=== PATIENT | female | born 1980 | race Caucasian/White ===

== ENCOUNTER 2018-11-27 15:15 | Emergency (ER) | payer MEDICAID ==
[~2018-11-27] VITALS: Ht 160 cm; Wt 97.5 kg
--- NOTE | 2018-11-27 15:24 | NUR ---
EKG DONE . REPORTED DR BRAVO. PT AMB TO [facility]. WAITING FOR BED AWAILABLE.
--- NOTE | 2018-11-27 17:14 | NUR ---
AALIYAHO X4 38 YR F WITH C/O LEFT CHEST PAIN RADIATING TO L SHOULDER & L UPPER BACK X TODAY MED HX: DENIES MED: NONE
[2018-11-27] MEDS ORDERED: KETOROLAC 30 MG/ML VIAL IVP ONE (17:25)
[2018-11-27] MEDS ORDERED: ONDANSETRON 4 MG/2 ML VIAL IVP ONE (17:25)
[2018-11-27] MEDS ORDERED: MORPHINE SULFATE 2 MG/ML SYR IVP ONE (17:25)
[2018-11-27 18:53] LABS: BASOPHILS # (AUTO) 0.1 K/uL (0.00-0.22); BASOPHILS % (AUTO) 0.9 % (0.0-2.0); EOSINOPHILS # (AUTO) 0.2 K/uL (0-0.4); EOSINOPHILS % (AUTO) 3.2 % (0.0-4.0); HEMATOCRIT 39.3 % (36-48); HEMOGLOBIN 12.8 g/dL (12.0-16.0); LYMPHOCYTES % (AUTO) 29.3 % (20.5-51.1); MEAN CORPUSCULAR HEMOGLOBIN 27 pg (27-31); MEAN CORPUSCULAR HGB CONC 33 g/dL (33-37); MEAN CORPUSCULAR VOLUME 83.7 fL (80-94); MONOCYTES # (AUTO) 0.6 K/uL (0.8-1.0); MONOCYTES % (AUTO) 9.3 % (1.7-9.3); NEUTROPHILS # (AUTO) 3.8 K/uL (1.8-7.7); NEUTROPHILS % (AUTO) 57.3 % (42.2-75.2); PLATELET COUNT (AUTO) 302 K/uL (140-450); RED CELL DISTRIBUTION WIDTH 15.8 % (11.6-13.7); WHITE BLOOD COUNT (AUTO) 6.7 K/uL (4.8-10.8)
[2018-11-27 18:58] LABS: PROTHROMBIN TIME 9.8 secs (10.8-13.4)
[2018-11-27 19:00] LABS: ANION GAP 13.5 (8-16); CARBON DIOXIDE 25.2 mmol/L (21-32); POTASSIUM 3.7 mmol/L (3.5-5.1)
[2018-11-27 19:01] LABS: ALBUMIN 3.8 g/dL (3.4-5.0); CREATININE 0.7 mg/dL (0.6-1.3); TOTAL BILIRUBIN 0.2 mg/dL (0.0-1.0)
[2018-11-27 19:03] LABS: D-DIMER < 100 ng/ml (0-400)
--- NOTE | 2018-11-27 19:14 | NUR ---
REPORT GIVEN TO MYKEL JUDD
[2018-11-28 01:59] VITALS: BP 103/67
== END 2018-11-27 19:37 | disposition home or self-care (01) ==
LOC: MED 15:15
DX: M94.0 Chondrocostal junction syndrome [Tietze] (principal)
CPT/HCPCS: 36415; 71045; 80053; 81025; 83880; 84484; 85025; 85379; 85610; 85730; 93005; 96374; 96375; 99284; J1885; J2270; J2405; Q0092